=== PATIENT | male | born 1950 | race Caucasian/White ===

== ENCOUNTER 2025-05-08 09:03 | Day surgery (SDC) | payer MEDICARE, OTHER ==
[~2025-05-08] VITALS: Ht 175.3 cm; Wt 125.9 kg
[~2025-05-08 09:03] MED LIST: ASTEPRO205.5 MCG/ NS; Balanced Salt Epinephrine Irrigation Solution 500 mL IR SCH; IBUP800 PO; METF500 PO; Miralax17 GM PO; Moxifloxacin HCL 0.5 MG/0.1 ML 0.4MLSYR LEFTEYE SCH; NAPR500 PO; Ondansetron 4 MG SoluTab MM PRN; PHENYLEPHRINE\\TROPICAMIDE\\TETRACAINE OPHTHALMIC DILATING SOLN LEFTEYE PRN; Percocet 5-3251 EACH PO; Povidone-Iodine 450 DROP/30 ML Solution LEFTEYE SCH; Povidone-Iodine 450 DROP/30 ML Solution ONE; SUMA20NI; TEMA15 PO; Tetracaine HCl/Pf 0.5% Opth Soln 4 ml ONE; Veramyst10 GM NS; ZYRTEC10 MG PO; Zofran8 MG PO
[2025-05-08] MEDS ORDERED: Clotrimazole-Be15 GM (09:22)
[2025-05-08] MEDS ORDERED: DEPAKOTE ER500 M2 PO (09:22)
[2025-05-08] MEDS ORDERED: ROSUVASTATIN CA10 MG PO (09:22)
[2025-05-08] MEDS ORDERED: CYCL10 PO (09:23)
--- NOTE | 2025-05-08 09:29 | NUR ---
05/08/25 0929 Roz Olmstead CALL LIGHT WITHIN REACH. PT ON CONTINOUS PULSE OXIMETER FOR MONITORING.
[2025-05-08] MEDS ORDERED: Tetracaine HCl 0.5% Opth Soln 15 ml LEFTEYE ONE (10:09)
--- NOTE | 2025-05-08 10:13 | NUR ---
05/08/25 1013 Mary Davila 90/53 BP 64 HR 99% O2 18 RR
[2025-05-08 10:27] VITALS: BP 116/72
== END 2025-05-08 10:41 | disposition home or self-care (01) ==
LOC: ORSCSDS 09:03
PROVIDERS: Student in an Organized Health Care Education/Training Program
PROC: 08RK3JZ Replacement of Left Lens with Synthetic Substitute, Percutaneous Approach (ICD-10-PCS; principal; 2025-05-08 10:30)
DX: H25.813 Combined forms of age-related cataract, bilateral (principal); H35.3131 Nonexudative age-related macular degeneration, bilateral, early dry stage
CPT/HCPCS: A9270; J2003; V2632

== ENCOUNTER 2025-05-15 12:09 | Day surgery (SDC) | payer MEDICARE, OTHER ==
[~2025-05-15] VITALS: Ht 177.8 cm; Wt 123.6 kg
[~2025-05-15 12:09] MED LIST changes: +CYCL10 PO; +Clotrimazole-Be15 GM; +DEPAKOTE ER500 M2 PO; -Moxifloxacin HCL 0.5 MG/0.1 ML 0.4MLSYR LEFTEYE SCH; +Moxifloxacin HCL 0.5 MG/0.1 ML 0.4MLSYR RIGHTEYE SCH; -PHENYLEPHRINE\\TROPICAMIDE\\TETRACAINE OPHTHALMIC DILATING SOLN LEFTEYE PRN; +PHENYLEPHRINE\\TROPICAMIDE\\TETRACAINE OPHTHALMIC DILATING SOLN RIGHTEYE PRN; -Povidone-Iodine 450 DROP/30 ML Solution LEFTEYE SCH; +Povidone-Iodine 450 DROP/30 ML Solution RIGHTEYE SCH; +ROSUVASTATIN CA10 MG PO
[2025-05-15] MEDS ORDERED: Aspirin EC81 MG PO (12:38)
--- NOTE | 2025-05-15 12:51 | NUR ---
05/15/25 1251 Brandy Olsen VITALS AT 1251 BP: 146/89 P: 69 O2: 96% WITH 10 LITERS OF BLOW BY OXYGEN
[2025-05-15 13:10] VITALS: BP 150/91
== END 2025-05-15 13:22 | disposition home or self-care (01) ==
LOC: ORSCSDS 12:09
PROVIDERS: Student in an Organized Health Care Education/Training Program
PROC: 08RJ3JZ Replacement of Right Lens with Synthetic Substitute, Percutaneous Approach (ICD-10-PCS; principal; 2025-05-15 13:30)
DX: H25.811 Combined forms of age-related cataract, right eye (principal); Z96.1 Presence of intraocular lens; H35.3131 Nonexudative age-related macular degeneration, bilateral, early dry stage
CPT/HCPCS: A9270; V2632